=== PATIENT | male | born 1970 | race African-American/Black ===

== ENCOUNTER 2016-08-12 10:55 | Emergency (ER) | payer SELFPAY ==
[2016-08-12 11:12] VITALS: BP 142/91; BMI 29.9
[2016-08-12] MEDS ORDERED: ZITHROMAX TAB 250 MG PO ONE ×2 (11:27→11:40)
--- NOTE | 2016-08-12 11:27 | DR.GENAD ---
HPI - PCP Primary Care Physician: HONG - HPI Comment HPI Comment: HISTORY BELOW. - Complaint/Symptoms Chief Complaint Doctors Comments: EARNEST BROKE DURING INTER COURSE. URITHRAL DISCHESGE PAST 3 DAYS. SLIGHT DISURIA. NO FEVER. DENIES SORE THROAT. Chief Complaint:: PT. STATES HE HAS HAD A DISCHARGE FROM [place] FOR 2-3 DAYS WHICH IS WHITE AND MILKY IN COLOR. PT. C/O IRRITATION TO [facility] WELL. PT. STATES IT COULD BE AN STD OR SOME TYPE OF INFECTION. - Nurses notes reviewed Nurses Notes Review: Yes - Source History Provided: Patient - Mode of Arrival Mode of Arrival: Ambulatory - Timing Onset of Chief Complaint: 08/10/16 Came on: Suddenly - Duration Duration: Constant Duration: Days - Severity Severity: Moderate PMH - PMH Past Medical History: Yes Past Medical History: Diabetes, GERD Past Surgical History: Yes Surgical History: Other Past Surgical History Comment: TESTICLE - Family History History of Family Medical Conditions: Yes Family Medical History: Diabetes Mellitus - Social History Does patient currently use any type of tobacco product: No Have you used tobacco products in the last 12 months: No Type of Tobacco Use: None Does any household member use tobacco: No Alcohol Use: None Do you use any recreational Drugs:: No Lives With: Family Lives Where: Home - infectious screening In the last 2 months have you had wt loss of >10#?: NO Have you had fever, night sweats or hemotysis?: No Have you traveled outside the country in the last 6 months?: No Isolation: Standard ROS - Review of Systems Constitutional: No Symptoms Reported Eyes: No Symptoms Reported ENTM: No Symptoms Reported Respiratoy: No Symptoms Reported Cardiovascular: No Symptoms Reported Gastrointestinal/Abdominal: No Symptoms Reported Genitourinary: Discharge Neurological: No Symptoms Reported Musculoskeletal: No Symptoms Reported Integumentary: No Symptoms Reported Hematologic/Lymphatic: No Symptoms Reported Endocrine: No Symptoms Reported All Other Systems: Reviewed and Negative PE - Vital Signs Vitals: Pulse Rate 88 Respiratory Rate 17 Blood Pressure 142/91 O2 Sat by Pulse Oximetry 97 - General Limitations: No Limitations General Appearance: Alert - Head Head Exam: Normal Inspection - Eyes Eye exam: Normal Appearance - ENT ENT Exam: Normal External Ear Exam External Ear Exam: Normal External Inspection Nose Exam: Normal Nose Exam Mouth Exam: Normal Inspection Throat Exam: Normal Inspection - Neck Neck Exam: Trachea Midline - Chest Chest Inspection: Symmetric Chest Wall Rise - Respiratory Respiratory Exam: Bilateral Clear to Auscultation - Cardiovascular Cardiovascular Exam: Regular Rate, Normal Rhythm, Normal Heart Sounds - Abdominal Exam Abdominal Exam: Normal Bowel Sounds, Soft, Other (URITHRAL DISCHARGE). negative : Tenderness - Extremities Extremities Exam: Normal Inspection - Back Back Exam: Normal Inspection - Neurologic Neurological Exam: Alert, Oriented X3 - Psychiatric Psychiatric Exam: Normal Affect, Normal Mood - Skin Skin Exam: Normal Color MDM - Differential Diagnosis Differential Diagnosis: URITHRITIS, UTI, EPIDYDIMITIS, STD Course - Treatment Treatment: SEE ORDERS. - Education/Counseling Education/Counseling: Patient, Education Educated On: Treatment, Diagnosis, Needs for Follow Up ROR - Labs Reviewed Laboratory Results Reviewed?: Yes Laboratory: Specimen Type Clean catch urine 08/12/16 11:20 Urine Color Yellow (YELLOW) 08/12/16 11:20 Urine Appearance Hazy (CLEAR) 08/12/16 11:20 Urine pH 5.0 (5.0 - 8.0) 08/12/16 11:20 Ur Specific [place] 1.020 (1.000-1.030) 08/12/16 11:20 Urine Protein 1+ (NEGATIVE) 08/12/16 11:20 Urine Glucose (UA) Negative (NEGATIVE) 08/12/16 11:20 Urine Ketones Negative (NEGATIVE) 08/12/16 11:20 Urine Occult Blood Negative (NEGATIVE) 08/12/16 11:20 Urine Nitrite Negative (NEGATIVE) 08/12/16 11:20 Urine Bilirubin Negative (NEGATIVE) 08/12/16 11:20 Urine Urobilinogen Normal (NORMAL) 08/12/16 11:20 Ur Leukocyte Esterase 2+ (NEGATIVE) 08/12/16 11:20 Urine RBC 0-2 /HPF (NEGATIVE) 08/12/16 11:20 Urine WBC 3-5 /HPF (NEGATIVE) 08/12/16 11:20 Ur Squamous Epith Cells Negative /HPF (NEGATIVE) 08/12/16 11:20 Urine Bacteria Trace /HPF (NEGATIVE) 08/12/16 11:20 Urine Mucus Few /HPF (NEGATIVE) 08/12/16 11:20 Ur Culture Indicated? No/not indicated 08/12/16 11:20 - Diagnosis Discharge Problem: Urethral discharge in male, STD (male) - Discharge Plan Disposition: 01 HOME, SELF-CARE Condition: Stable - Follow ups/Referrals Follow ups/Referrals: BLANCA PITTS [Primary Care Provider] - 3 days - Instructions Instructions: Sexually Transmitted Disease, [id number] Additional Instructions: RETURN TO ED IF WORSE.
[2016-08-12] MEDS ORDERED: ROCEPHIN VIAL 250 MG IM ONE (11:28)
[2016-08-12 11:29] LABS: BILIRUBIN,URINE NEGATIVE (NEGATIVE); BLOOD/HEMOGLOBIN,URINE NEGATIVE (NEGATIVE); GLUCOSE, URINE NEGATIVE (NEGATIVE); KETONES,URINE NEGATIVE (NEGATIVE); LEUKOCYTE ESTERASE ,URINE 2+ (NEGATIVE); NITRITES,URINE NEGATIVE (NEGATIVE); PROTEIN,URINE 1+ (NEGATIVE); UROBILINOGEN,URINE NORMAL (NORMAL)
[2016-08-12 11:36] LABS: APPEARANCE,URINE HAZY (CLEAR); COLOR,URINE YELLOW (YELLOW); RBC,URINE 0-2 /HPF (NEGATIVE)
[2016-08-12 11:37] LABS: BACTERIA,URINE TRACE /HPF (NEGATIVE); MUCUS,URINE FEW /HPF (NEGATIVE); SQUAMOUS EPITHELIAL CELL,UR NEGATIVE /HPF (NEGATIVE)
[2016-08-12] MEDS ORDERED: ROCEPHIN VIAL 250 MG ONE (11:40)
--- NOTE | 2016-08-12 11:48 | DR.GENAD ---
HPI - PCP Primary Care Physician: HONG - HPI Comment HPI Comment: PATIENT SAID HIS EARNEST BROKE DURING SEXUAL INTER COURSES AND HAVE HAD URITHRAL DISCHARGE FOR 3 DAYS. SLIGHT DYSURIA. NO FEVER. - Complaint/Symptoms Chief Complaint Doctors Comments: URITHRAL DISCHRGE BELOW. Chief Complaint:: PT. STATES HE HAS HAD A DISCHARGE FROM [place] FOR 2-3 DAYS WHICH IS WHITE AND MILKY IN COLOR. PT. C/O IRRITATION TO [facility] WELL. PT. STATES IT COULD BE AN STD OR SOME TYPE OF INFECTION. - Nurses notes reviewed Nurses Notes Review: Yes - Source History Provided: Patient - Mode of Arrival Mode of Arrival: Ambulatory - Timing Onset of Chief Complaint: 08/10/16 Came on: Suddenly - Duration Duration: Constant Duration: Days - Severity Severity: Moderate PMH - PMH Past Medical History: Yes Past Medical History: Diabetes, GERD Past Surgical History: Yes Surgical History: Other Past Surgical History Comment: TESTICLE - Family History History of Family Medical Conditions: Yes Family Medical History: Diabetes Mellitus - Social History Does patient currently use any type of tobacco product: No Have you used tobacco products in the last 12 months: No Type of Tobacco Use: None Does any household member use tobacco: No Alcohol Use: None Do you use any recreational Drugs:: No Lives With: Family Lives Where: Home - infectious screening In the last 2 months have you had wt loss of >10#?: NO Have you had fever, night sweats or hemotysis?: No Have you traveled outside the country in the last 6 months?: No Isolation: Standard ROS - Review of Systems Constitutional: No Symptoms Reported Eyes: No Symptoms Reported ENTM: No Symptoms Reported Respiratoy: No Symptoms Reported Cardiovascular: No Symptoms Reported Gastrointestinal/Abdominal: No Symptoms Reported Genitourinary: Discharge, Dysuria Neurological: No Symptoms Reported Musculoskeletal: No Symptoms Reported Integumentary: No Symptoms Reported Hematologic/Lymphatic: No Symptoms Reported Endocrine: No Symptoms Reported All Other Systems: Reviewed and Negative PE - Vital Signs Vitals: Pulse Rate 88 Respiratory Rate 17 Blood Pressure 142/91 O2 Sat by Pulse Oximetry 97 - General Limitations: No Limitations General Appearance: Alert - Head Head Exam: Normal Inspection - Eyes Eye exam: Normal Appearance - ENT ENT Exam: Normal External Ear Exam External Ear Exam: Normal External Inspection Nose Exam: Normal Nose Exam Mouth Exam: Normal Inspection Throat Exam: Normal Inspection - Neck Neck Exam: Trachea Midline - Chest Chest Inspection: Symmetric Chest Wall Rise - Respiratory Respiratory Exam: Normal Lung Sounds Bilat Respiratory Exam: Bilateral Clear to Auscultation - Cardiovascular Cardiovascular Exam: Regular Rate, Normal Rhythm, Normal Heart Sounds - Abdominal Exam Abdominal Exam: Normal Bowel Sounds, Soft, Hyperactive Bowel Sounds - Extremities Extremities Exam: Normal Inspection - Back Back Exam: Normal Inspection - Neurologic Neurological Exam: Alert, Oriented X3 - Psychiatric Psychiatric Exam: Normal Affect, Normal Mood - Skin Skin Exam: Normal Color MDM - Differential Diagnosis Differential Diagnosis: STD ROR - Labs Reviewed Laboratory: Specimen Type Clean catch urine 08/12/16 11:20 Urine Color Yellow (YELLOW) 08/12/16 11:20 Urine Appearance Hazy (CLEAR) 08/12/16 11:20 Urine pH 5.0 (5.0 - 8.0) 08/12/16 11:20 Ur Specific [place] 1.020 (1.000-1.030) 08/12/16 11:20 Urine Protein 1+ (NEGATIVE) 08/12/16 11:20 Urine Glucose (UA) Negative (NEGATIVE) 08/12/16 11:20 Urine Ketones Negative (NEGATIVE) 08/12/16 11:20 Urine Occult Blood Negative (NEGATIVE) 08/12/16 11:20 Urine Nitrite Negative (NEGATIVE) 08/12/16 11:20 Urine Bilirubin Negative (NEGATIVE) 08/12/16 11:20 Urine Urobilinogen Normal (NORMAL) 08/12/16 11:20 Ur Leukocyte Esterase 2+ (NEGATIVE) 08/12/16 11:20 Urine RBC 0-2 /HPF (NEGATIVE) 08/12/16 11:20 Urine WBC 3-5 /HPF (NEGATIVE) 08/12/16 11:20 Ur Squamous Epith Cells Negative /HPF (NEGATIVE) 08/12/16 11:20 Urine Bacteria Trace /HPF (NEGATIVE) 08/12/16 11:20 Urine Mucus Few /HPF (NEGATIVE) 08/12/16 11:20 Ur Culture Indicated? No/not indicated 08/12/16 11:20 - Diagnosis Discharge Problem: Urethral discharge in male, STD (male) - Discharge Plan Condition: Stable - Follow ups/Referrals Follow ups/Referrals: BLANCA PITTS [Primary Care Provider] - 3 days - Instructions Instructions: Sexually Transmitted Disease, [id number] Additional Instructions: RETURN TO ED IF WORSE.
[2016-08-12 13:14] LABS: CHLAMYDIA TRACH URINE NOT DETECTED (NOT DETECT)
== END 2016-08-12 11:52 | disposition home or self-care (01) ==
LOC: ER 11:03
DX: A64 Unspecified sexually transmitted disease (principal); R36.9 Urethral discharge, unspecified
CPT/HCPCS: 81001; 87491; 87591; 96372; 99282; Q0144; J0696

== ENCOUNTER 2017-03-11 19:40 | Emergency (ER) | payer BC ==
[2017-03-11 19:46] VITALS: BMI 28.1
[2017-03-11 20:14] LABS: BILIRUBIN,URINE NEGATIVE (NEGATIVE); BLOOD/HEMOGLOBIN,URINE NEGATIVE (NEGATIVE); GLUCOSE, URINE NEGATIVE (NEGATIVE); KETONES,URINE NEGATIVE (NEGATIVE); LEUKOCYTE ESTERASE ,URINE 2+ (NEGATIVE); NITRITES,URINE NEGATIVE (NEGATIVE); PROTEIN,URINE 1+ (NEGATIVE); UROBILINOGEN,URINE NORMAL (NORMAL)
[2017-03-11 20:26] LABS: APPEARANCE,URINE SLIGHTLY HAZY (CLEAR); BACTERIA,URINE 1+ /HPF (NEGATIVE); COLOR,URINE YELLOW (YELLOW); RBC,URINE 0-3 /HPF (NEGATIVE); SQUAMOUS EPITHELIAL CELL,UR FEW /HPF (NEGATIVE)
[2017-03-11] MEDS ORDERED: ZITHROMAX TAB 250 MG PO ONE ×2 (20:38→20:43)
[2017-03-11] MEDS ORDERED: ROCEPHIN VIAL 250 MG IM ONE (20:40)
[2017-03-11] MEDS ORDERED: ROCEPHIN VIAL 250 MG ONE (20:43)
--- NOTE | 2017-03-11 20:50 | DR.GENAD ---
HPI - PCP Primary Care Physician: KIAH - HPI Comment HPI Comment: HISTORY BELOW. - Complaint/Symptoms Chief Complaint Doctors Comments: PATIENT DAD UNPRODECTED INTERCOUSE. NOW HAVING DYSURIA AND URETHRAL DISCHARGE. NO FEVER. Chief Complaint:: DISCHARGE WHEN URINATING - Nurses notes reviewed Nurses Notes Review: Yes - Source History Provided: Patient - Mode of Arrival Mode of Arrival: Ambulatory - Timing Onset of Chief Complaint: 03/11/17 Came on: Suddenly - Duration Duration: Intermittent Duration: Days - Severity Severity: Moderate PMH - PMH Past Medical History: Yes Past Medical History: Diabetes, Dyslipidemia Past Surgical History: Yes Surgical History: Other Past Surgical History Comment: TESTICULAR TORSION - Family History History of Family Medical Conditions: Yes Family Medical History: Diabetes Mellitus, Cancer, Hypertension - Social History Does patient currently use any type of tobacco product: No Have you used tobacco products in the last 12 months: No Type of Tobacco Use: None Does any household member use tobacco: No Alcohol Use: None Do you use any recreational Drugs:: No Lives With: Alone Lives Where: Home - infectious screening In the last 2 months have you had wt loss of >10#?: NO Have you had fever, night sweats or hemotysis?: No Have you traveled outside the country in the last 6 months?: No Isolation: Standard ROS - Review of Systems Constitutional: No Symptoms Reported Eyes: No Symptoms Reported ENTM: No Symptoms Reported Respiratoy: No Symptoms Reported Cardiovascular: No Symptoms Reported Gastrointestinal/Abdominal: No Symptoms Reported Genitourinary: Discharge, Dysuria Neurological: No Symptoms Reported Musculoskeletal: No Symptoms Reported Integumentary: No Symptoms Reported Hematologic/Lymphatic: No Symptoms Reported Endocrine: No Symptoms Reported All Other Systems: Reviewed and Negative PE - Vital Signs Vitals: Temperature 98.5 F Pulse Rate [Right Brachial] 90 Pulse Rate 96 Respiratory Rate 20 Blood Pressure [Right Arm] 134/90 Blood Pressure 137/94 O2 Sat by Pulse Oximetry 98 - General Limitations: No Limitations General Appearance: Alert - Head Head Exam: Normal Inspection - Eyes Eye exam: Normal Appearance - ENT ENT Exam: Normal External Ear Exam External Ear Exam: Normal External Inspection TM/Canal Exam: Bilateral Normal Nose Exam: Normal Nose Exam Mouth Exam: Normal Inspection Throat Exam: Normal Inspection - Neck Neck Exam: Trachea Midline - Chest Chest Inspection: Symmetric Chest Wall Rise - Respiratory Respiratory Exam: Normal Lung Sounds Bilat Respiratory Exam: Bilateral Clear to Auscultation - Cardiovascular Cardiovascular Exam: Regular Rate, Normal Rhythm, Normal Heart Sounds - Abdominal Exam Abdominal Exam: Normal Bowel Sounds, Soft. negative: Tenderness - Extremities Extremities Exam: Normal Inspection - Back Back Exam: Normal Inspection - Neurologic Neurological Exam: Alert, Oriented X3 - Psychiatric Psychiatric Exam: Normal Affect, Normal Mood - Skin Skin Exam: Normal Color MDM - Differential Diagnosis Differential Diagnosis: STD EXPOSURE, DYSURIA., URETHRAL DISCHARGE. Course - Treatment Treatment: SEE ORDERS. ROCEPHINE IM AND ZITHROMAX PO IN ED. - Education/Counseling Education/Counseling: Patient, Education Educated On: Treatment, Diagnosis, Needs for Follow Up ROR - Labs Reviewed Laboratory Results Reviewed?: Yes Laboratory: Specimen Type Random urine 03/11/17 19:50 Urine Color Yellow (YELLOW) 03/11/17 19:50 Urine Appearance Slightly hazy (CLEAR) 03/11/17 19:50 Urine pH 5.0 (5.0 - 8.0) 03/11/17 19:50 Ur Specific [place] 1.025 (1.000-1.030) 03/11/17 19:50 Urine Protein 1+ (NEGATIVE) 03/11/17 19:50 Urine Glucose (UA) Negative (NEGATIVE) 03/11/17 19:50 Urine Ketones Negative (NEGATIVE) 03/11/17 19:50 Urine Occult Blood Negative (NEGATIVE) 03/11/17 19:50 Urine Nitrite Negative (NEGATIVE) 03/11/17 19:50 Urine Bilirubin Negative (NEGATIVE) 03/11/17 19:50 Urine Urobilinogen Normal (NORMAL) 03/11/17 19:50 Ur Leukocyte Esterase 2+ (NEGATIVE) 03/11/17 19:50 Urine RBC 0-3 /HPF (NEGATIVE) 03/11/17 19:50 Urine WBC 25-30 /HPF (NEGATIVE) 03/11/17 19:50 Ur Squamous Epith Cells Few /HPF (NEGATIVE) 03/11/17 19:50 Urine Bacteria 1+ /HPF (NEGATIVE) 03/11/17 19:50 Ur Culture Indicated? No/not indicated 03/11/17 19:50 Ur C. trach DNA (PCR) Not detected (NOT DETECT) 03/11/17 20:02 U N.gonorrhoeae DNA PCR Detected (NOT DETECT) A 03/11/17 20:02 - Diagnosis Discharge Problem: Gonorrhea, STD (male) UTI (urinary tract infection) Qualifiers: Urinary tract infection type: site unspecified Hematuria presence: without hematuria Qualified Code(s): N39.0 - Urinary tract infection, site not specified - Discharge Plan Disposition: 01 HOME, SELF-CARE Condition: Stable Prescriptions: Ciprofloxacin HCl [CIPRO 500 MG TAB *] 500 mg PO Q12H #20 tab - Follow ups/Referrals Follow ups/Referrals: N[facility],None [Primary Care Provider] - 3 days - Instructions Instructions: Urinary Tract Infection, Adult, [id number], Gonorrhea Additional Instructions: RETURN TO ED IF WORSE.
[2017-03-11 21:46] LABS: CHLAMYDIA TRACH URINE NOT DETECTED (NOT DETECT)
[2017-03-11 22:12] VITALS: BP 134/90
== END 2017-03-11 22:13 | disposition home or self-care (01) ==
LOC: ER 19:51
DX: A64 Unspecified sexually transmitted disease (principal); N39.0 Urinary tract infection, site not specified; R30.0 Dysuria
CPT/HCPCS: 81001; 87491; 87591; 96372; 99282; 99283; Q0144; J0696